=== PATIENT | male | born 1945 | race Caucasian/White ===

== ENCOUNTER 2021-04-02 10:52 | Inpatient (IN) | payer MEDICARE ==
[2021-04-02 11:49] VITALS: BMI 30.8
[2021-04-02] MEDS ORDERED: Senokot S 8.6-50 MG TAB PO PRN (13:17)
[2021-04-02] MEDS ORDERED: Ondansetron ODT 4 MG TAB PO PRN (13:17)
[2021-04-02] MEDS ORDERED: Ondansetron PF 4 MG/2 ML Vial IVP PRN (13:17)
[2021-04-02] MEDS ORDERED: Guaifenesin DM 100-10/5 ML UDCUP PO PRN (13:17)
[2021-04-02] MEDS ORDERED: Benzonatate 100 MG CAP PO PRN (13:27)
[2021-04-02] MEDS ORDERED: REMDESIVIR 200 MG in Sodium Chloride 0.9% 250 ML 210 ML IV SCH (14:00)
[2021-04-02 14:16] LABS: CRP (Inflammatory) 3.35 mg/dL (= or < 0.5)
[2021-04-02 14:21] LABS: Troponin I 0.047 ng/mL (< 0.028)
[2021-04-02] MEDS: cefTRIAXone\\ROCEPHIN 1 GM in Sodium Chloride 0.9% 100 ML IVPB SCH (15:01)
[2021-04-02] MEDS ORDERED: ACETAMINOPHEN PO SCH (17:00)
[2021-04-02] MEDS ORDERED: OXYCODONE HCL PO SCH (17:00)
[2021-04-02] MEDS ORDERED: [UNRECOGNIZED DRUG - OTHER] PO SCH (17:00)
[2021-04-02] MEDS: Bumetanide 1 MG TAB PO SCH (18:10)
[2021-04-02] MEDS: Acetaminophen 325 MG TAB PO SCH (18:10)
[2021-04-02] MEDS: oxyCODONE 5 MG TAB PO SCH (18:11)
[2021-04-02] MEDS: Pramipexole Di-HCl 0.25 MG TAB PO SCH (18:12)
[2021-04-02] MEDS ORDERED: FLU VACC QS2021-22(65YR UP)/PF 240 MCG/0.7 ML SYRINGE IM ONE (18:45)
[2021-04-02] MEDS: guaiFENesin ER 600 MG TAB PO SCH (20:34)
[2021-04-02] MEDS: Gabapentin 300 MG CAP PO SCH (20:34)
[2021-04-02] MEDS: Potassium Chloride 10 MEQ TAB PO SCH (20:34)
[2021-04-02] MEDS: tiZANidine HCl 4 MG TAB PO PRN (20:36)
[2021-04-02] MEDS: Mometasone 100 MCG/PUFF (1 INHALER) INH SCH (21:59)
[2021-04-03 05:41] LABS: #Monocytes 0.7 10x3/uL (0.0-1.1); #Neutrophils 6.2 10x3/uL (1.5-8.4); %Basophils 0.1 % (0.0-2.0); %Lymphocytes 26.7 % (18.0-47.0); %Monocytes 7.3 % (0.0-10.0); %Neutrophils 64.6 % (40.0-75.0); Hemoglobin 9.2 g/dL (12.0-15.5); Mean Corpuscular HGB CONC 30.2 g/dL (32.0-36.0); Mean Corpuscular Hemoglobin 25.9 pg (27.0-33.0); Mean Corpuscular Volume 85.9 fl (81.6-98.3); Platelet Count 162 10x3/uL (150-450); RBC Distribution Width 18.9 % (11.5-14.5); Red Blood Cell (RBC) Count 3.55 10x6/uL (3.90-5.03); White Blood Cell (WBC) Count 9.7 10x3/uL (3.5-10.5)
[2021-04-03 05:42] LABS: ALT (SGPT) 23 U/L (8-55); AST (SGOT) 29 U/L (5-34); Albumin 2.5 g/dL (3.4-4.8); Alkaline Phosphatase 76 U/L (40-110); Anion Gap 14 mmol/L (10-20); BUN (Urea Nitrogen) 24 mg/dL (9.8-20.1); Bilirubin, Total 0.4 mg/dL (0.2-1.2); Calc. Creatinine Clearance 60 mL/min (70-130); Calcium 7.5 mg/dL (7.8-10.44); Carbon Dioxide 28 mmol/L (23-31); Chloride 102 mmol/L (98-107); Glucose 155 mg/dL (83-110); Potassium 4.5 mmol/L (3.5-5.1); Protein, Total 5.5 g/dL (5.8-8.1); Sodium 139 mmol/L (136-145)
[2021-04-03] MEDS: Mometasone 100 MCG/PUFF (1 INHALER) INH SCH ×2 (10:30→22:23)
[2021-04-03] MEDS: oxyCODONE 5 MG TAB PO SCH ×2 (10:36→18:00)
[2021-04-03] MEDS: Enoxaparin Sodium 40 MG/0.4 ML SYRINGE SC SCH (10:36)
[2021-04-03] MEDS: Tamsulosin HCl 0.4 MG CAP PO SCH (10:37)
[2021-04-03] MEDS: Zinc Sulfate 220 MG CAP PO SCH (10:37)
[2021-04-03] MEDS: DULoxetine 30 MG CAP PO SCH (10:38)
[2021-04-03] MEDS: guaiFENesin ER 600 MG TAB PO SCH ×2 (10:38→20:33)
[2021-04-03] MEDS: Ascorbic Acid 500 mg Chewable Tablet PO SCH (10:38)
[2021-04-03] MEDS: Atorvastatin Calcium 40 MG TAB PO SCH (10:38)
[2021-04-03] MEDS: Potassium Chloride 10 MEQ TAB PO SCH ×2 (10:39→20:33)
[2021-04-03] MEDS: Acetaminophen 325 MG TAB PO SCH ×2 (10:39→17:59)
[2021-04-03] MEDS: Bumetanide 1 MG TAB PO SCH ×2 (10:39→18:01)
[2021-04-03] MEDS: Dexamethasone 4 mg/ml Vial SLOW IVP SCH (10:40)
[2021-04-03] MEDS: Pramipexole Di-HCl 0.25 MG TAB PO SCH ×2 (10:40→18:01)
[2021-04-03] MEDS: Fluticasone Propionate Nasal Spray 16 gm Bottle NASAL SCH (10:41)
[2021-04-03] MEDS: cefTRIAXone\\ROCEPHIN 1 GM in Sodium Chloride 0.9% 100 ML IVPB SCH (13:19)
[2021-04-03] MEDS ORDERED: Budesonide 0.5 MG/2 ML NEB NEB SCH (14:23)
[2021-04-03] MEDS: REMDESIVIR 100 MG in Sodium Chloride 0.9% 250 ML 230 ML IV SCH (14:52)
[2021-04-03] MEDS: Gabapentin 300 MG CAP PO SCH (20:33)
[2021-04-03] MEDS: tiZANidine HCl 4 MG TAB PO PRN (20:47)
[2021-04-03] MEDS: Ventolin HFA Inhaler 60 PUFF INHALER INH SCH (22:22)
[2021-04-04 05:51] LABS: Anion Gap 14 mmol/L (10-20); BUN (Urea Nitrogen) 23 mg/dL (9.8-20.1); Calc. Creatinine Clearance 63 mL/min (70-130); Calcium 7.5 mg/dL (7.8-10.44); Carbon Dioxide 29 mmol/L (23-31); Chloride 100 mmol/L (98-107); Glucose 162 mg/dL (83-110); Magnesium 1.9 mg/dL (1.6-2.6); Phosphorus 4.1 mg/dL (2.3-4.7); Potassium 4.6 mmol/L (3.5-5.1); Sodium 138 mmol/L (136-145)
[2021-04-04 05:57] LABS: #Monocytes 0.5 10x3/uL (0.0-1.1); #Neutrophils 5.7 10x3/uL (1.5-8.4); %Basophils 0.1 % (0.0-2.0); %Lymphocytes 28.2 % (18.0-47.0); %Monocytes 5.2 % (0.0-10.0); %Neutrophils 65.8 % (40.0-75.0); Hemoglobin 10.1 g/dL (12.0-15.5); Mean Corpuscular HGB CONC 31.2 g/dL (32.0-36.0); Mean Corpuscular Hemoglobin 26.2 pg (27.0-33.0); Mean Corpuscular Volume 83.9 fl (81.6-98.3); Mean Platelet Volume 9.4 fl (7.4-10.4); Platelet Count 168 10x3/uL (150-450); RBC Distribution Width 18.7 % (11.5-14.5); Red Blood Cell (RBC) Count 3.86 10x6/uL (3.90-5.03); White Blood Cell (WBC) Count 8.7 10x3/uL (3.5-10.5)
[2021-04-04] MEDS ORDERED: Mometasone 100 MCG/PUFF (1 INHALER) INH SCH (07:00)
[2021-04-04] MEDS: Mometasone 100 MCG/PUFF (1 INHALER) INH SCH ×2 (07:40→20:34)
[2021-04-04] MEDS: Ventolin HFA Inhaler 60 PUFF INHALER INH SCH ×4 (07:41→20:37)
[2021-04-04] MEDS: Acetaminophen 325 MG TAB PO SCH ×2 (09:37→16:18)
[2021-04-04] MEDS: Enoxaparin Sodium 40 MG/0.4 ML SYRINGE SC SCH (09:38)
[2021-04-04] MEDS: Tamsulosin HCl 0.4 MG CAP PO SCH (09:38)
[2021-04-04] MEDS: guaiFENesin ER 600 MG TAB PO SCH ×2 (09:38→20:37)
[2021-04-04] MEDS: DULoxetine 30 MG CAP PO SCH (09:38)
[2021-04-04] MEDS: Potassium Chloride 10 MEQ TAB PO SCH ×2 (09:38→20:37)
[2021-04-04] MEDS: Pramipexole Di-HCl 0.25 MG TAB PO SCH ×2 (09:39→16:17)
[2021-04-04] MEDS: Dexamethasone 4 mg/ml Vial SLOW IVP SCH (09:40)
[2021-04-04] MEDS: Atorvastatin Calcium 40 MG TAB PO SCH (09:40)
[2021-04-04] MEDS: oxyCODONE 5 MG TAB PO SCH ×2 (09:41→16:17)
[2021-04-04] MEDS: Zinc Sulfate 220 MG CAP PO SCH (09:41)
[2021-04-04] MEDS: Bumetanide 1 MG TAB PO SCH ×2 (09:42→16:18)
[2021-04-04] MEDS: Ascorbic Acid 500 mg Chewable Tablet PO SCH (09:42)
[2021-04-04] MEDS: Fluticasone Propionate Nasal Spray 16 gm Bottle NASAL SCH (09:42)
[2021-04-04] MEDS ORDERED: Polyethylene Glycol 3350 17 GM Packet PO SCH (12:00)
[2021-04-04] MEDS: REMDESIVIR 100 MG in Sodium Chloride 0.9% 250 ML 230 ML IV SCH (14:21)
[2021-04-04] MEDS: Gabapentin 300 MG CAP PO SCH (20:37)
[2021-04-04] MEDS: tiZANidine HCl 4 MG TAB PO PRN (20:37)
[2021-04-04] MEDS: Senokot S 8.6-50 MG TAB PO SCH (20:38)
[2021-04-05 05:42] LABS: Anion Gap 15 mmol/L (10-20); BUN (Urea Nitrogen) 22 mg/dL (9.8-20.1); Calc. Creatinine Clearance 67 mL/min (70-130); Calcium 7.8 mg/dL (7.8-10.44); Carbon Dioxide 33 mmol/L (23-31); Chloride 97 mmol/L (98-107); Glucose 174 mg/dL (83-110); Magnesium 1.9 mg/dL (1.6-2.6); Phosphorus 3.4 mg/dL (2.3-4.7); Potassium 4.6 mmol/L (3.5-5.1); Sodium 140 mmol/L (136-145)
[2021-04-05 05:46] LABS: #Monocytes 0.5 10x3/uL (0.0-1.1); #Neutrophils 4.9 10x3/uL (1.5-8.4); %Basophils 0.3 % (0.0-2.0); %Lymphocytes 30.5 % (18.0-47.0); %Monocytes 6.3 % (0.0-10.0); %Neutrophils 61.9 % (40.0-75.0); Hemoglobin 10.1 g/dL (12.0-15.5); Mean Corpuscular HGB CONC 30.5 g/dL (32.0-36.0); Mean Corpuscular Hemoglobin 25.7 pg (27.0-33.0); Mean Corpuscular Volume 84.2 fl (81.6-98.3); Mean Platelet Volume 9.1 fl (7.4-10.4); Platelet Count 168 10x3/uL (150-450); RBC Distribution Width 18.3 % (11.5-14.5); Red Blood Cell (RBC) Count 3.93 10x6/uL (3.90-5.03); White Blood Cell (WBC) Count 7.9 10x3/uL (3.5-10.5)
[2021-04-05] MEDS: Mometasone 100 MCG/PUFF (1 INHALER) INH SCH ×2 (07:04→21:04)
[2021-04-05] MEDS: Ventolin HFA Inhaler 60 PUFF INHALER INH SCH ×4 (07:10→21:04)
[2021-04-05] MEDS: Enoxaparin Sodium 40 MG/0.4 ML SYRINGE SC SCH (08:53)
[2021-04-05] MEDS: Acetaminophen 325 MG TAB PO SCH ×2 (08:54→16:00)
[2021-04-05] MEDS: Tamsulosin HCl 0.4 MG CAP PO SCH (08:54)
[2021-04-05] MEDS: Dexamethasone 4 mg/ml Vial SLOW IVP SCH (08:54)
[2021-04-05] MEDS: Senokot S 8.6-50 MG TAB PO SCH ×2 (08:54→21:06)
[2021-04-05] MEDS: Polyethylene Glycol 3350 17 GM Packet PO SCH (08:54)
[2021-04-05] MEDS: Zinc Sulfate 220 MG CAP PO SCH (08:54)
[2021-04-05] MEDS: Atorvastatin Calcium 40 MG TAB PO SCH (08:54)
[2021-04-05] MEDS: guaiFENesin ER 600 MG TAB PO SCH ×2 (08:54→20:11)
[2021-04-05] MEDS: Fluticasone Propionate Nasal Spray 16 gm Bottle NASAL SCH (08:55)
[2021-04-05] MEDS: Pramipexole Di-HCl 0.25 MG TAB PO SCH ×2 (08:55→16:00)
[2021-04-05] MEDS: Potassium Chloride 10 MEQ TAB PO SCH ×2 (08:55→20:11)
[2021-04-05] MEDS: oxyCODONE 5 MG TAB PO SCH ×2 (08:55→16:00)
[2021-04-05] MEDS: Bumetanide 1 MG TAB PO SCH ×2 (08:55→16:00)
[2021-04-05] MEDS: DULoxetine 30 MG CAP PO SCH (08:55)
[2021-04-05] MEDS: Ascorbic Acid 500 mg Chewable Tablet PO SCH (08:55)
[2021-04-05] MEDS: REMDESIVIR 100 MG in Sodium Chloride 0.9% 250 ML 230 ML IV SCH (12:18)
[2021-04-05] MEDS: Acetaminophen 325 MG TAB PO PRN ×2 (13:13→20:12)
[2021-04-05] MEDS: Gabapentin 300 MG CAP PO SCH ×2 (20:10→20:15)
[2021-04-06 06:15] LABS: #Monocytes 0.5 10x3/uL (0.0-1.1); #Neutrophils 4.9 10x3/uL (1.5-8.4); %Basophils 0.1 % (0.0-2.0); %Lymphocytes 29.3 % (18.0-47.0); %Monocytes 6.5 % (0.0-10.0); %Neutrophils 63.1 % (40.0-75.0); Hemoglobin 10.6 g/dL (12.0-15.5); Mean Corpuscular HGB CONC 32.6 g/dL (32.0-36.0); Mean Corpuscular Hemoglobin 26.6 pg (27.0-33.0); Mean Corpuscular Volume 81.5 fl (81.6-98.3); Mean Platelet Volume 8.9 fl (7.4-10.4); Platelet Count 168 10x3/uL (150-450); RBC Distribution Width 18.2 % (11.5-14.5); Red Blood Cell (RBC) Count 3.99 10x6/uL (3.90-5.03); White Blood Cell (WBC) Count 7.8 10x3/uL (3.5-10.5)
[2021-04-06 06:29] LABS: Anion Gap 14 mmol/L (10-20); BUN (Urea Nitrogen) 27 mg/dL (9.8-20.1); Calc. Creatinine Clearance 57 mL/min (70-130); Calcium 7.7 mg/dL (7.8-10.44); Carbon Dioxide 30 mmol/L (23-31); Chloride 98 mmol/L (98-107); Glucose 143 mg/dL (83-110); Magnesium 1.9 mg/dL (1.6-2.6); Phosphorus 3.1 mg/dL (2.3-4.7); Potassium 3.8 mmol/L (3.5-5.1); Sodium 138 mmol/L (136-145)
[2021-04-06] MEDS: Mometasone 100 MCG/PUFF (1 INHALER) INH SCH ×2 (07:37→20:38)
[2021-04-06] MEDS: Ventolin HFA Inhaler 60 PUFF INHALER INH SCH ×4 (07:38→20:38)
[2021-04-06] MEDS: Senokot S 8.6-50 MG TAB PO SCH ×2 (08:25→20:50)
[2021-04-06] MEDS: Acetaminophen 325 MG TAB PO SCH ×2 (08:26→17:04)
[2021-04-06] MEDS: Dexamethasone 4 mg/ml Vial SLOW IVP SCH (08:26)
[2021-04-06] MEDS: Pramipexole Di-HCl 0.25 MG TAB PO SCH ×2 (08:26→17:10)
[2021-04-06] MEDS: DULoxetine 30 MG CAP PO SCH (08:26)
[2021-04-06] MEDS: Enoxaparin Sodium 40 MG/0.4 ML SYRINGE SC SCH (08:26)
[2021-04-06] MEDS: Zinc Sulfate 220 MG CAP PO SCH (08:26)
[2021-04-06] MEDS: guaiFENesin ER 600 MG TAB PO SCH ×2 (08:26→20:50)
[2021-04-06] MEDS: oxyCODONE 5 MG TAB PO SCH ×2 (08:26→17:04)
[2021-04-06] MEDS: Polyethylene Glycol 3350 17 GM Packet PO SCH (08:27)
[2021-04-06] MEDS: Atorvastatin Calcium 40 MG TAB PO SCH (08:27)
[2021-04-06] MEDS: Bumetanide 1 MG TAB PO SCH ×2 (08:27→17:10)
[2021-04-06] MEDS: Potassium Chloride 10 MEQ TAB PO SCH ×2 (08:27→20:50)
[2021-04-06] MEDS: Fluticasone Propionate Nasal Spray 16 gm Bottle NASAL SCH (08:27)
[2021-04-06] MEDS: Ascorbic Acid 500 mg Chewable Tablet PO SCH (08:27)
[2021-04-06] MEDS: Tamsulosin HCl 0.4 MG CAP PO SCH (08:27)
[2021-04-06] MEDS: REMDESIVIR 100 MG in Sodium Chloride 0.9% 250 ML 230 ML IV SCH (12:56)
[2021-04-06] MEDS: Acetaminophen 325 MG TAB PO PRN ×2 (14:22→20:51)
[2021-04-07 06:30] LABS: #Monocytes 0.6 10x3/uL (0.0-1.1); #Neutrophils 3.8 10x3/uL (1.5-8.4); %Basophils 0.4 % (0.0-2.0); %Eosinophils 0.1 % (0.0-6.0); %Lymphocytes 34.7 % (18.0-47.0); %Monocytes 8.5 % (0.0-10.0); %Neutrophils 54.7 % (40.0-75.0); Hemoglobin 11.4 g/dL (13.5-17.5); Mean Corpuscular HGB CONC 31.8 g/dL (32.0-36.0); Mean Corpuscular Hemoglobin 26.1 pg (27.0-33.0); Mean Corpuscular Volume 82.1 fl (81.2-95.1); Mean Platelet Volume 9.4 fl (7.4-10.4); Platelet Count 179 10x3/uL (150-450); RBC Distribution Width 18.3 % (11.5-14.5); Red Blood Cell (RBC) Count 4.36 10x6/uL (4.32-5.72); White Blood Cell (WBC) Count 6.9 10x3/uL (3.5-10.5)
[2021-04-07 06:52] LABS: Anion Gap 13 mmol/L (10-20); BUN (Urea Nitrogen) 26 mg/dL (8.4-25.7); Calc. Creatinine Clearance 68 mL/min (70-130); Calcium 8.1 mg/dL (7.8-10.44); Carbon Dioxide 35 mmol/L (23-31); Chloride 97 mmol/L (98-107); Glucose 121 mg/dL (83-110); Magnesium 2.1 mg/dL (1.6-2.6); Phosphorus 3.2 mg/dL (2.3-4.7); Potassium 4.3 mmol/L (3.5-5.1); Sodium 141 mmol/L (136-145)
[2021-04-07] MEDS: Mometasone 100 MCG/PUFF (1 INHALER) INH SCH ×2 (07:52→20:35)
[2021-04-07] MEDS: Ventolin HFA Inhaler 60 PUFF INHALER INH SCH ×4 (07:52→20:36)
[2021-04-07] MEDS: Potassium Chloride 10 MEQ TAB PO SCH ×2 (09:07→20:30)
[2021-04-07] MEDS: Enoxaparin Sodium 40 MG/0.4 ML SYRINGE SC SCH (09:07)
[2021-04-07] MEDS: Ascorbic Acid 500 mg Chewable Tablet PO SCH (09:08)
[2021-04-07] MEDS: Zinc Sulfate 220 MG CAP PO SCH (09:08)
[2021-04-07] MEDS: Amlodipine 5 MG TAB PO SCH (09:08)
[2021-04-07] MEDS: Tamsulosin HCl 0.4 MG CAP PO SCH (09:08)
[2021-04-07] MEDS: oxyCODONE 5 MG TAB PO SCH ×2 (09:10→16:40)
[2021-04-07] MEDS: Bumetanide 1 MG TAB PO SCH ×2 (09:12→16:42)
[2021-04-07] MEDS: Acetaminophen 325 MG TAB PO SCH ×2 (09:13→16:42)
[2021-04-07] MEDS: Dexamethasone 4 mg/ml Vial SLOW IVP SCH (09:18)
[2021-04-07] MEDS: guaiFENesin ER 600 MG TAB PO SCH ×2 (09:19→20:30)
[2021-04-07] MEDS: Fluticasone Propionate Nasal Spray 16 gm Bottle NASAL SCH (09:20)
[2021-04-07] MEDS: DULoxetine 30 MG CAP PO SCH (09:22)
[2021-04-07] MEDS: Atorvastatin Calcium 40 MG TAB PO SCH (11:21)
[2021-04-07] MEDS: Senokot S 8.6-50 MG TAB PO SCH ×2 (11:21→22:18)
[2021-04-07] MEDS: Polyethylene Glycol 3350 17 GM Packet PO SCH (11:22)
[2021-04-07] MEDS: Pramipexole Di-HCl 0.25 MG TAB PO SCH ×2 (12:21→16:41)
[2021-04-07] MEDS: tiZANidine HCl 4 MG TAB PO PRN (20:30)
[2021-04-07] MEDS: Gabapentin 300 MG CAP PO SCH (20:30)
[2021-04-08 06:25] LABS: #Monocytes 0.6 10x3/uL (0.0-1.1); #Neutrophils 4.6 10x3/uL (1.5-8.4); %Basophils 0.4 % (0.0-2.0); %Monocytes 7.1 % (0.0-10.0); %Neutrophils 57.4 % (40.0-75.0); Hemoglobin 10.8 g/dL (13.5-17.5); Mean Corpuscular HGB CONC 31.1 g/dL (32.0-36.0); Mean Corpuscular Volume 83.6 fl (81.2-95.1); Mean Platelet Volume 9.3 fl (7.4-10.4); Platelet Count 190 10x3/uL (150-450); RBC Distribution Width 18.3 % (11.5-14.5); Red Blood Cell (RBC) Count 4.15 10x6/uL (4.32-5.72); White Blood Cell (WBC) Count 7.9 10x3/uL (3.5-10.5)
[2021-04-08 06:46] LABS: Anion Gap 16 mmol/L (10-20); BUN (Urea Nitrogen) 26 mg/dL (8.4-25.7); Calc. Creatinine Clearance 63 mL/min (70-130); Calcium 8.5 mg/dL (7.8-10.44); Carbon Dioxide 34 mmol/L (23-31); Chloride 97 mmol/L (98-107); Glucose 156 mg/dL (83-110); Magnesium 2.3 mg/dL (1.6-2.6); Potassium 5.3 mmol/L (3.5-5.1); Sodium 142 mmol/L (136-145)
[2021-04-08] MEDS: Bumetanide 1 MG TAB PO SCH ×2 (08:33→16:24)
[2021-04-08] MEDS: Senokot S 8.6-50 MG TAB PO SCH ×2 (08:34→22:20)
[2021-04-08] MEDS: Enoxaparin Sodium 40 MG/0.4 ML SYRINGE SC SCH (08:34)
[2021-04-08] MEDS: Polyethylene Glycol 3350 17 GM Packet PO SCH (08:34)
[2021-04-08] MEDS: Potassium Chloride 10 MEQ TAB PO SCH ×2 (08:35→20:21)
[2021-04-08] MEDS: DULoxetine 30 MG CAP PO SCH (08:35)
[2021-04-08] MEDS: Amlodipine 5 MG TAB PO SCH (08:35)
[2021-04-08] MEDS: oxyCODONE 5 MG TAB PO SCH ×2 (08:36→16:24)
[2021-04-08] MEDS: Acetaminophen 325 MG TAB PO SCH ×2 (08:38→16:26)
[2021-04-08] MEDS: Tamsulosin HCl 0.4 MG CAP PO SCH (08:39)
[2021-04-08] MEDS: Pramipexole Di-HCl 0.25 MG TAB PO SCH ×2 (08:39→16:23)
[2021-04-08] MEDS: Dexamethasone 4 mg/ml Vial SLOW IVP SCH (08:40)
[2021-04-08] MEDS: Fluticasone Propionate Nasal Spray 16 gm Bottle NASAL SCH (08:40)
[2021-04-08] MEDS: Mometasone 100 MCG/PUFF (1 INHALER) INH SCH ×2 (08:51→21:11)
[2021-04-08] MEDS: Ventolin HFA Inhaler 60 PUFF INHALER INH SCH ×4 (08:52→21:11)
[2021-04-08] MEDS: Ascorbic Acid 500 mg Chewable Tablet PO SCH (10:36)
[2021-04-08] MEDS: guaiFENesin ER 600 MG TAB PO SCH ×2 (10:37→20:21)
[2021-04-08] MEDS: Atorvastatin Calcium 40 MG TAB PO SCH (10:37)
[2021-04-08] MEDS: Zinc Sulfate 220 MG CAP PO SCH (10:38)
[2021-04-08 12:04] LABS: Anion Gap 15 mmol/L (10-20); BUN (Urea Nitrogen) 25 mg/dL (8.4-25.7); Calc. Creatinine Clearance 63 mL/min (70-130); Calcium 8.4 mg/dL (7.8-10.44); Carbon Dioxide 31 mmol/L (23-31); Chloride 96 mmol/L (98-107); Glucose 150 mg/dL (83-110); Potassium 3.9 mmol/L (3.5-5.1); Sodium 138 mmol/L (136-145)
[2021-04-08] MEDS: Gabapentin 300 MG CAP PO SCH (20:21)
[2021-04-09 04:40] LABS: Anion Gap 15 mmol/L (10-20); BUN (Urea Nitrogen) 25 mg/dL (8.4-25.7); Calc. Creatinine Clearance 64 mL/min (70-130); Calcium 8.1 mg/dL (7.8-10.44); Carbon Dioxide 32 mmol/L (23-31); Chloride 96 mmol/L (98-107); Glucose 149 mg/dL (83-110); Magnesium 2.2 mg/dL (1.6-2.6); Phosphorus 4.6 mg/dL (2.3-4.7); Potassium 3.5 mmol/L (3.5-5.1); Sodium 139 mmol/L (136-145)
[2021-04-09 04:57] LABS: #Monocytes 0.5 10x3/uL (0.0-1.1); #Neutrophils 5.4 10x3/uL (1.5-8.4); %Basophils 0.1 % (0.0-2.0); %Lymphocytes 23.7 % (18.0-47.0); %Monocytes 6.9 % (0.0-10.0); Hemoglobin 10.6 g/dL (13.5-17.5); Mean Corpuscular HGB CONC 31.4 g/dL (32.0-36.0); Mean Corpuscular Hemoglobin 25.9 pg (27.0-33.0); Mean Corpuscular Volume 82.6 fl (81.2-95.1); Mean Platelet Volume 9.5 fl (7.4-10.4); Platelet Count 204 10x3/uL (150-450); RBC Distribution Width 17.7 % (11.5-14.5); Red Blood Cell (RBC) Count 4.09 10x6/uL (4.32-5.72); White Blood Cell (WBC) Count 7.9 10x3/uL (3.5-10.5)
[2021-04-09] MEDS: Mometasone 100 MCG/PUFF (1 INHALER) INH SCH ×2 (07:20→19:32)
[2021-04-09] MEDS: Ventolin HFA Inhaler 60 PUFF INHALER INH SCH ×4 (07:21→19:32)
[2021-04-09] MEDS: Potassium Chloride 10 MEQ TAB PO SCH ×2 (08:36→20:10)
[2021-04-09] MEDS: Tamsulosin HCl 0.4 MG CAP PO SCH (08:36)
[2021-04-09] MEDS: Senokot S 8.6-50 MG TAB PO SCH ×2 (08:36→20:11)
[2021-04-09] MEDS: Dexamethasone 4 mg/ml Vial SLOW IVP SCH ×2 (08:36→10:00)
[2021-04-09] MEDS: Bumetanide 1 MG TAB PO SCH ×2 (08:37→17:19)
[2021-04-09] MEDS: Enoxaparin Sodium 40 MG/0.4 ML SYRINGE SC SCH (08:37)
[2021-04-09] MEDS: Acetaminophen 325 MG TAB PO SCH ×2 (08:37→17:19)
[2021-04-09] MEDS: Ascorbic Acid 500 mg Chewable Tablet PO SCH (08:37)
[2021-04-09] MEDS: Zinc Sulfate 220 MG CAP PO SCH (08:37)
[2021-04-09] MEDS: DULoxetine 30 MG CAP PO SCH (08:37)
[2021-04-09] MEDS: Polyethylene Glycol 3350 17 GM Packet PO SCH (08:38)
[2021-04-09] MEDS: Pramipexole Di-HCl 0.25 MG TAB PO SCH ×2 (08:38→17:19)
[2021-04-09] MEDS: Atorvastatin Calcium 40 MG TAB PO SCH (08:38)
[2021-04-09] MEDS: guaiFENesin ER 600 MG TAB PO SCH ×2 (08:38→20:10)
[2021-04-09] MEDS: oxyCODONE 5 MG TAB PO SCH ×2 (08:38→17:19)
[2021-04-09] MEDS: Fluticasone Propionate Nasal Spray 16 gm Bottle NASAL SCH (08:38)
[2021-04-09] MEDS: Gabapentin 300 MG CAP PO SCH (20:10)
[2021-04-10 04:24] LABS: #Monocytes 0.5 10x3/uL (0.0-1.1); %Basophils 0.3 % (0.0-2.0); %Eosinophils 0.4 % (0.0-6.0); %Lymphocytes 32.2 % (18.0-47.0); %Monocytes 7.4 % (0.0-10.0); %Neutrophils 57.8 % (40.0-75.0); Hemoglobin 11.6 g/dL (13.5-17.5); Mean Corpuscular HGB CONC 31.7 g/dL (32.0-36.0); Mean Corpuscular Volume 81.9 fl (81.2-95.1); Mean Platelet Volume 9.3 fl (7.4-10.4); Platelet Count 208 10x3/uL (150-450); RBC Distribution Width 18.2 % (11.5-14.5); Red Blood Cell (RBC) Count 4.47 10x6/uL (4.32-5.72); White Blood Cell (WBC) Count 6.9 10x3/uL (3.5-10.5)
[2021-04-10 05:35] LABS: Anion Gap 15 mmol/L (10-20); BUN (Urea Nitrogen) 22 mg/dL (8.4-25.7); Calc. Creatinine Clearance 60 mL/min (70-130); Calcium 7.9 mg/dL (7.8-10.44); Carbon Dioxide 32 mmol/L (23-31); Chloride 96 mmol/L (98-107); Glucose 138 mg/dL (83-110); Magnesium 2.1 mg/dL (1.6-2.6); Phosphorus 4.7 mg/dL (2.3-4.7); Potassium 3.2 mmol/L (3.5-5.1); Sodium 140 mmol/L (136-145)
[2021-04-10] MEDS: Mometasone 100 MCG/PUFF (1 INHALER) INH SCH ×2 (07:29→20:02)
[2021-04-10] MEDS: Ventolin HFA Inhaler 60 PUFF INHALER INH SCH ×4 (07:30→20:02)
[2021-04-10] MEDS: Acetaminophen 325 MG TAB PO SCH ×2 (08:41→17:40)
[2021-04-10] MEDS: Dexamethasone 4 mg/ml Vial SLOW IVP SCH (08:42)
[2021-04-10] MEDS: Polyethylene Glycol 3350 17 GM Packet PO SCH (08:42)
[2021-04-10] MEDS: Enoxaparin Sodium 40 MG/0.4 ML SYRINGE SC SCH (08:42)
[2021-04-10] MEDS: oxyCODONE 5 MG TAB PO SCH ×2 (08:42→17:40)
[2021-04-10] MEDS: Tamsulosin HCl 0.4 MG CAP PO SCH (08:42)
[2021-04-10] MEDS: Senokot S 8.6-50 MG TAB PO SCH ×2 (08:42→22:49)
[2021-04-10] MEDS: guaiFENesin ER 600 MG TAB PO SCH ×2 (08:42→20:44)
[2021-04-10] MEDS: Bumetanide 1 MG TAB PO SCH ×2 (08:43→17:41)
[2021-04-10] MEDS: Ascorbic Acid 500 mg Chewable Tablet PO SCH (08:43)
[2021-04-10] MEDS: Pramipexole Di-HCl 0.25 MG TAB PO SCH ×2 (08:43→17:40)
[2021-04-10] MEDS: Atorvastatin Calcium 40 MG TAB PO SCH (08:43)
[2021-04-10] MEDS: Fluticasone Propionate Nasal Spray 16 gm Bottle NASAL SCH (08:43)
[2021-04-10] MEDS: Potassium Chloride 10 MEQ TAB PO SCH ×2 (08:43→20:44)
[2021-04-10] MEDS: Zinc Sulfate 220 MG CAP PO SCH (08:43)
[2021-04-10] MEDS: DULoxetine 30 MG CAP PO SCH (08:43)
[2021-04-10] MEDS: Acetaminophen 325 MG TAB PO PRN (12:40)
[2021-04-10] MEDS: Gabapentin 300 MG CAP PO SCH (20:44)
[2021-04-10] MEDS: tiZANidine HCl 4 MG TAB PO PRN (22:44)
[2021-04-11] MEDS: Mometasone 100 MCG/PUFF (1 INHALER) INH SCH ×2 (07:26→19:19)
[2021-04-11] MEDS: Ventolin HFA Inhaler 60 PUFF INHALER INH SCH ×4 (07:27→19:19)
[2021-04-11] MEDS: Dexamethasone 4 mg/ml Vial SLOW IVP SCH (10:38)
[2021-04-11] MEDS: Senokot S 8.6-50 MG TAB PO SCH ×2 (10:39→20:57)
[2021-04-11] MEDS: Zinc Sulfate 220 MG CAP PO SCH (10:39)
[2021-04-11] MEDS: Polyethylene Glycol 3350 17 GM Packet PO SCH (10:39)
[2021-04-11] MEDS: Tamsulosin HCl 0.4 MG CAP PO SCH (10:39)
[2021-04-11] MEDS: Pramipexole Di-HCl 0.25 MG TAB PO SCH ×2 (10:39→16:26)
[2021-04-11] MEDS: Ascorbic Acid 500 mg Chewable Tablet PO SCH (10:39)
[2021-04-11] MEDS: oxyCODONE 5 MG TAB PO SCH ×2 (10:40→16:28)
[2021-04-11] MEDS: Bumetanide 1 MG TAB PO SCH ×2 (10:41→16:26)
[2021-04-11] MEDS: Atorvastatin Calcium 40 MG TAB PO SCH (10:41)
[2021-04-11] MEDS: DULoxetine 30 MG CAP PO SCH (10:41)
[2021-04-11] MEDS: Acetaminophen 325 MG TAB PO SCH ×2 (10:41→16:26)
[2021-04-11] MEDS: guaiFENesin ER 600 MG TAB PO SCH ×2 (10:41→20:57)
[2021-04-11] MEDS: Enoxaparin Sodium 40 MG/0.4 ML SYRINGE SC SCH (10:41)
[2021-04-11] MEDS: Potassium Chloride 10 MEQ TAB PO SCH ×2 (10:41→20:57)
[2021-04-11] MEDS: Fluticasone Propionate Nasal Spray 16 gm Bottle NASAL SCH (10:42)
[2021-04-11] MEDS: Gabapentin 300 MG CAP PO SCH (20:56)
[2021-04-11] MEDS: tiZANidine HCl 4 MG TAB PO PRN (20:56)
[2021-04-12] MEDS: Mometasone 100 MCG/PUFF (1 INHALER) INH SCH ×2 (07:51→20:17)
[2021-04-12] MEDS: Ventolin HFA Inhaler 60 PUFF INHALER INH SCH ×4 (07:52→20:18)
[2021-04-12] MEDS: Enoxaparin Sodium 40 MG/0.4 ML SYRINGE SC SCH (09:13)
[2021-04-12] MEDS: Dexamethasone 4 mg/ml Vial SLOW IVP SCH (09:13)
[2021-04-12] MEDS: guaiFENesin ER 600 MG TAB PO SCH ×2 (09:14→20:57)
[2021-04-12] MEDS: Pramipexole Di-HCl 0.25 MG TAB PO SCH ×2 (09:14→16:14)
[2021-04-12] MEDS: Potassium Chloride 10 MEQ TAB PO SCH ×2 (09:14→20:57)
[2021-04-12] MEDS: Bumetanide 1 MG TAB PO SCH ×2 (09:15→16:14)
[2021-04-12] MEDS: Atorvastatin Calcium 40 MG TAB PO SCH (09:15)
[2021-04-12] MEDS: Ascorbic Acid 500 mg Chewable Tablet PO SCH (09:15)
[2021-04-12] MEDS: Zinc Sulfate 220 MG CAP PO SCH (09:15)
[2021-04-12] MEDS: DULoxetine 30 MG CAP PO SCH (09:16)
[2021-04-12] MEDS: Senokot S 8.6-50 MG TAB PO SCH ×2 (09:16→20:56)
[2021-04-12] MEDS: Tamsulosin HCl 0.4 MG CAP PO SCH (09:16)
[2021-04-12] MEDS: oxyCODONE 5 MG TAB PO SCH ×2 (09:17→16:15)
[2021-04-12] MEDS: Acetaminophen 325 MG TAB PO SCH ×2 (09:18→16:16)
[2021-04-12] MEDS: Polyethylene Glycol 3350 17 GM Packet PO SCH (09:19)
[2021-04-12] MEDS: Fluticasone Propionate Nasal Spray 16 gm Bottle NASAL SCH (09:19)
[2021-04-12] MEDS: Gabapentin 300 MG CAP PO SCH (20:56)
[2021-04-13] MEDS: Bumetanide 1 MG TAB PO SCH ×2 (06:31→17:17)
[2021-04-13] MEDS: Ventolin HFA Inhaler 60 PUFF INHALER INH SCH ×3 (07:37→14:46)
[2021-04-13] MEDS: Mometasone 100 MCG/PUFF (1 INHALER) INH SCH (07:37)
[2021-04-13] MEDS: Polyethylene Glycol 3350 17 GM Packet PO SCH (09:34)
[2021-04-13] MEDS: Dexamethasone 4 mg/ml Vial SLOW IVP SCH (09:34)
[2021-04-13] MEDS: Ascorbic Acid 500 mg Chewable Tablet PO SCH (09:35)
[2021-04-13] MEDS: Atorvastatin Calcium 40 MG TAB PO SCH (09:35)
[2021-04-13] MEDS: Pramipexole Di-HCl 0.25 MG TAB PO SCH ×2 (09:35→17:17)
[2021-04-13] MEDS: Tamsulosin HCl 0.4 MG CAP PO SCH (09:36)
[2021-04-13] MEDS: Senokot S 8.6-50 MG TAB PO SCH (09:36)
[2021-04-13] MEDS: guaiFENesin ER 600 MG TAB PO SCH (09:36)
[2021-04-13] MEDS: tiZANidine HCl 4 MG TAB PO PRN (09:37)
[2021-04-13] MEDS: Potassium Chloride 10 MEQ TAB PO SCH (09:37)
[2021-04-13] MEDS: Acetaminophen 325 MG TAB PO SCH ×2 (09:37→17:18)
[2021-04-13] MEDS: oxyCODONE 5 MG TAB PO SCH ×2 (09:38→17:19)
[2021-04-13] MEDS: Enoxaparin Sodium 40 MG/0.4 ML SYRINGE SC SCH (09:39)
[2021-04-13] MEDS: Fluticasone Propionate Nasal Spray 16 gm Bottle NASAL SCH (09:40)
[2021-04-13] MEDS: DULoxetine 30 MG CAP PO SCH (09:41)
[2021-04-13] MEDS: Zinc Sulfate 220 MG CAP PO SCH (09:49)
[2021-04-13 12:36] VITALS: TEMP 98.1
[2021-04-13 13:21] VITALS: BP 172/95
== END 2021-04-13 17:30 | DRG 871 ==
LOC: CSHTELE 10:52 → EDSEX 10:52
PROVIDERS: ADMIT Internal Medicine; ATTEND Family Medicine
PROC: 8E0ZXY6 Isolation (ICD-10-PCS; principal; 2021-04-02)
PROC: XW033E5 Introduction of Remdesivir Anti-infective into Peripheral Vein, Percutaneous Approach, New Technology Group 5 (ICD-10-PCS; 2021-04-02)
DX: A41.89 Other specified sepsis (principal); U07.1 COVID-19; J12.82 Pneumonia due to coronavirus disease 2019; J96.01 Acute respiratory failure with hypoxia; N18.4 Chronic kidney disease, stage 4 (severe); J44.0 Chronic obstructive pulmonary disease with (acute) lower respiratory infection; M06.9 Rheumatoid arthritis, unspecified; I48.0 Paroxysmal atrial fibrillation; J84.10 Pulmonary fibrosis, unspecified; G31.84 Mild cognitive impairment of uncertain or unknown etiology; K21.9 Gastro-esophageal reflux disease without esophagitis; E78.5 Hyperlipidemia, unspecified; N40.0 Benign prostatic hyperplasia without lower urinary tract symptoms; I12.9 Hypertensive chronic kidney disease with stage 1 through stage 4 chronic kidney disease, or unspecified chronic kidney disease; G25.81 Restless legs syndrome; I95.1 Orthostatic hypotension; F11.90 Opioid use, unspecified, uncomplicated; G89.29 Other chronic pain; F41.9 Anxiety disorder, unspecified; G47.33 Obstructive sleep apnea (adult) (pediatric); J30.2 Other seasonal allergic rhinitis; I25.10 Atherosclerotic heart disease of native coronary artery without angina pectoris; Z79.52 Long term (current) use of systemic steroids; Z95.5 Presence of coronary angioplasty implant and graft; Z99.81 Dependence on supplemental oxygen; Z79.899 Other long term (current) drug therapy
CPT/HCPCS: 36415; 71045; 80048; 80053; 82550; 83615; 83735; 83880; 84100; 84145; 85025; 85379; 86140; 93005; 93010; 94760; J0248; J0696; J1100; J1650; J3490; J7050